=== PATIENT | male | born 1940 | race Caucasian/White ===

== ENCOUNTER 2019-07-28 | Day surgery (SDC) | payer OTHER | END 2019-07-28 10:35 | disposition home or self-care (01) | DX: H25.12 Age-related nuclear cataract, left eye (principal); I10 Essential (primary) hypertension; Z79.82 Long term (current) use of aspirin; Z79.02 Long term (current) use of antithrombotics/antiplatelets; Z79.899 Other long term (current) drug therapy ==

== ENCOUNTER 2019-09-22 05:29 | Day surgery (SDC) | payer OTHER ==
[2019-09-22] MEDS ORDERED: TROP1%/CYCLOPEN 1%/PHENYL 2.5% DROPS ONE (05:42)
[2019-09-22] MEDS ORDERED: MOXIFLOXACIN HCL (OPHTH) 1 DROP DROPS ONE (05:42)
[2019-09-22] MEDS ORDERED: PROPARACAINE 0.5% OPHTH SOL 15 ML BTTL ONE (05:42)
[2019-09-22] MEDS ORDERED: PROPOFOL 200 MG/20 ML VIAL IV ONE (07:12)
[2019-09-22] MEDS: LIDOCAINE 1% 2 ML VIAL INJ ONE (07:20)
[2019-09-22] MEDS: MOXIFLOXACIN HCL (OPHTH) 1 DROP DROPS RIGHT_EYE ONE (07:20)
[2019-09-22] MEDS: PROPARACAINE 0.5% OPHTH SOL 15 ML BTTL RIGHT_EYE ONE (07:20)
[2019-09-22] MEDS: DEXAMETHASONE 0.1% OPHTH SOL 1 DROP RIGHT_EYE ONE (07:25)
[2019-09-22] MEDS: TOBRAMYCIN SULF 0.3 % OPHT SOL 1 DROP RIGHT_EYE ONE (07:26)
[2019-09-22] MEDS: BRIMONIDINE 0.2% OPHTH DROPS RIGHT_EYE ONE (07:26)
== END 2019-09-22 08:15 | disposition home or self-care (01) ==
LOC: AMB 05:29
PROVIDERS: ATTEND Ophthalmology
DX: H25.11 Age-related nuclear cataract, right eye (principal); I10 Essential (primary) hypertension; I25.2 Old myocardial infarction; F17.220 Nicotine dependence, chewing tobacco, uncomplicated; Z79.899 Other long term (current) drug therapy; Z79.02 Long term (current) use of antithrombotics/antiplatelets; Z79.82 Long term (current) use of aspirin